=== PATIENT | female | born 1960 | race Caucasian/White ===

== ENCOUNTER 2016-12-08 17:54 | Emergency (ER) | payer OTHER ==
[~2016-12-08 17:54] MED LIST: ASPI81TA82 PO; ATOR10TA PO; FISHOIL PO; LEVO.1 PO; LISI-519 PO; METO25 PO; MULT-65 PO; NITR.4 SL
[2016-12-08 18:02] VITALS: BP 184/89; PULSE 98; RESP 15; TEMP 98.4; O2SAT 98
[2016-12-08 18:20] VITALS: RESP 20; O2SAT 100
--- NOTE | 2016-12-08 18:20 | PD ---
HPI Chief Complaint: Cardiac Complaint Time Seen by Provider: 18:16 Travel History International Travel<30 days: No Contact w/Intl Traveler<30days: No Traveled to known affect area: No History of Present Illness HPI Patient comes in complaining of left-sided chest pain that she describes as a dull ache that began last night. Patient states she had been working in the yard yesterday and last night she went to scratch her left shoulder with her right hand when the pain began. Patient denies anything making this better. States that is worse with certain movement of her left upper extremity. Patient denies any associated shortness of breath, nausea, vomiting, diaphoresis , fevers, numbness tingling were called back pain, loss or change in bowel or bladder, or trauma. Patient states that she does take low-dose aspirin daily and she took that today already. Patient currently does not have a machine feeder raw stock. PFSH Past Medical History Autoimmune Disease: No Heart Rhythm Problems: No Cancer: No Cardiac Catheterization: Yes Cardiovascular Problems: Yes High Cholesterol: Yes Chest Pain: Yes Congestive Heart Failure: No COPD: Yes Diabetes: No Diminished Hearing: No Endocrine: No Genitourinary: No Hepatitis: Yes Hypertension: Yes Immune Disorder: No Implanted Vascular Access Dvce: Yes Psychiatric: No Reproductive: No Respiratory: Yes Myocardial Infarction: Yes Tubal Ligation: Yes Past Surgical History AICD: No Arteriovenous Shunt: No Body Medical Devices: S/P CABG 10-26-12 Cardiac Surgery: Yes (CABG X2 VESSEL OCTOBER 2012) Coronary Artery Bypass Graft: Yes Insulin Pump: No Joint Replacement: No Oral Surgery: Yes (JAW SURGERY) Pacemaker: No Thoracic Surgery: Yes Tonsillectomy: Yes Other Surgery: Yes Social History Alcohol Use: No Tobacco Use: Yes Substance Use: No Allergies-Medications (Allergen,Severity, Reaction): Coded Allergies: morphine (Unverified Adverse Reaction, Intermediate, Headache, 12/08/16) Reported Meds & Prescriptions Reported Meds & Active Scripts Active Synthroid (Levothyroxine Sodium) 100 Mcg Tab 100 Mcg PO DAILY Lisinopril 5 Mg Tab 5 Mg PO DAILY Reported Nitroglycerin SL (Nitroglycerin) 0.4 Mg Subl 0.4 Mg SL DIRECTED PRN ONE TABLET UNDER THE TONGUE NEEDED FOR CHEST PAIN, MAY REPEAT EVERY FIVE MINUTES FOR A TOTAL OF 3 DOSES OR CALL 911 IF NO RELIEF Aspirin 81 Mg Chew 81 Mg CHEW DAILY Atorvastatin (Atorvastatin Calcium) 10 Mg Tab 10 Mg PO HS Metoprolol Tartrate 25 Mg Tab 12.5 Mg PO DAILY Review of Systems Except as stated in HPI: all other systems reviewed are Neg Physical Exam Narrative GENERAL: Well-developed, overly nourished, in no acute distress, and non-ill appearing. SKIN: Focused skin assessment warm and dry. HEAD: Atraumatic. Normocephalic. EYES: Pupils equal and round. EOMI. No scleral icterus. No injection or drainage. ENT: No nasal bleeding or discharge. Mucous membranes pink and moist. NECK: Trachea midline. No JVD. Supple. No nuclear rigidity. CARDIOVASCULAR: Regular rate and rhythm. No murmur appreciated. RESPIRATORY: No accessory muscle use. No respiratory distress. Clear to auscultation. Breath sounds equal bilaterally. MUSCULOSKELETAL: No obvious deformities. No clubbing. No cyanosis. No edema. Full range of motion. NEUROLOGICAL: Awake and alert. No obvious cranial nerve deficits. Motor grossly within normal limits. Normal speech. PSYCHIATRIC: Appropriate mood and affect; insight and judgment normal. Data Data Last Documented VS Vital Signs Date Time Temp Pulse Resp B/P (MAP) Pulse Ox O2 Delivery O2 Flow Rate FiO2 12/08/16 20:54 12/08/16 20:45 84 16 97 Room Air 12/08/16 18:02 98.4 Orders Orders Electrocardiogram (12/08/16 ) Basic Metabolic Panel (Bmp) (12/08/16 18:16) Ckmb (Isoenzyme) Profile (12/08/16 18:16) Complete Blood Count With Diff (12/08/16 18:16) Magnesium (Mg) (12/08/16 18:16) Prothrombin Time / Inr (Pt) (12/08/16 18:16) Act Partial Throm Time (Ptt) (12/08/16 18:16) Troponin I (12/08/16 18:16) Chest, Single Ap (12/08/16 18:16) Ecg Monitoring (12/08/16 18:16) Bilateral Bp Monitoring (12/08/16 18:16) Iv Access Insert/Monitor (12/08/16 18:16) Oximetry (12/08/16 18:16) Oxygen Administration (12/08/16 18:16) Aspirin Chew (Aspirin Chew) (9/3/17 18:30) Sodium Chloride 0.9% Flush (Ns Flush) (12/08/16 18:30) Labs Laboratory Tests Test 12/08/16 18:30 White Blood Count 9.9 TH/MM3 Red Blood Count 3.83 MIL/MM3 Hemoglobin 14.0 GM/DL Hematocrit 40.1 % Mean Corpuscular Volume 104.7 FL Mean Corpuscular Hemoglobin 36.6 PG Mean Corpuscular Hemoglobin Concent 35.0 % Red Cell Distribution Width 11.9 % Platelet Count 274 TH/MM3 Mean Platelet Volume 8.8 FL Neutrophils (%) (Auto) 71.3 % Lymphocytes (%) (Auto) 21.9 % Monocytes (%) (Auto) 6.1 % Eosinophils (%) (Auto) 0.5 % Basophils (%) (Auto) 0.2 % Neutrophils # (Auto) 7.0 TH/MM3 Lymphocytes # (Auto) 2.2 TH/MM3 Monocytes # (Auto) 0.6 TH/MM3 Eosinophils # (Auto) 0.1 TH/MM3 Basophils # (Auto) 0.0 TH/MM3 CBC Comment DIFF FINAL Differential Comment Prothrombin Time 11.3 SEC Prothromb Time International Ratio 1.0 RATIO Activated Partial Thromboplast Time 26.8 SEC Blood Urea Nitrogen 8 MG/DL Creatinine 0.98 MG/DL Random Glucose 114 MG/DL Calcium Level 9.1 MG/DL Magnesium Level 2.0 MG/DL Sodium Level 134 MEQ/L Potassium Level 3.7 MEQ/L Chloride Level 102 MEQ/L Carbon Dioxide Level 23.2 MEQ/L Anion Gap 9 MEQ/L Estimat Glomerular Filtration Rate 58 ML/MIN Total Creatine Kinase 86 U/L Troponin I LESS THAN 0.02 NG/ML MDM Medical Decision Making Medical Screen Exam Complete: Yes Emergency Medical Condition: Yes Interpretation(s) EKG reviewed by Dr. Meléndez shows sinus tachycardia with ventricular rate 112. No STEMI. Chest x-ray read by the radiologist shows: No acute disease. Differential Diagnosis Acute coronary syndrome, electrolyte abnormality, pneumonia, pneumothorax, musculoskeletal pain, other Narrative Course Records review shows patient had a stress test on 06/30/14 that was negative. Myocardial perfusion scan was negative for ischemia. Ejection fraction of 66%. Was noted to be low risk. The patients chest pain by history and evaluation appears noncardiac, nor noncardiopulmonary in etiology. Evaluation revealed no evidence of cardiac involvement at this time. There is no clinical evidence to suggest thoracic aortic aneurysms or pathology, nor evidence to suggest pulmonary embolism, pericarditis, pneumothorax, nor pneumonia at this time. Clinical suspicion was discussed with patient and the patient was instructed to follow up with primary care doctor for possible Cardiology referral for potential outpatient evaluation. I discussed this management with the patient and the patient understands the importance or acute follow up with primary care provider. The patient was instructed to return at any time if chest pain recurs, persists, changes or worsens in anyway while awaiting follow up. The patient agreed with plan. Patient in no obvious distress upon re-evaluation. All pertinent laboratory/ Radiology result(s) discussed with patient/family. Discussed patient with Dr. Meléndez prior to discharge, who is in agreement with plan of care and disposition. Any questions/concerns in reference to patient diagnosis/ condition discussed and clarified prior to patient's discharge. Reinforced sheer importance of close follow up with patient's primary physician or primary care clinic. Instructed patient to return to ED immediately, if symptoms return/ worsen. Pt showed understanding of above instructions. Further instructions and recommendations were detailed in discharge paperwork. Pt ambulated without difficulty out of ED at discharge. Diagnosis Primary Impression: Non-cardiac chest pain Patient Instructions: General Instructions, Noncardiac Chest Pain (ED) Additional Instructions: Follow-up with your primary care physician this week for reevaluation. Take all medication as prescribed. Return to the emergency department if symptoms get worse. Disposition: 01 DISCHARGE HOME Condition: Stable Chalino Crow Dec 08, 2016 18:20
[2016-12-08] MEDS ORDERED: NITR1SUB3 SL (18:24)
[2016-12-08] MEDS ORDERED: ATOR10TA15 PO (18:24)
[2016-12-08] MEDS ORDERED: METO25TA3 PO (18:24)
[2016-12-08] MEDS ORDERED: ASPI81CH CHEW (18:24)
[2016-12-08] MEDS ORDERED: SODIUM CHLORIDE 0.9% FLUSH 10 ML FLUSH IVF PRN (18:30)
[2016-12-08] MEDS ORDERED: ASPIRIN 81 MG CHEW TAB PO ONE (18:30)
[2016-12-08 18:52] LABS: ANION GAP 9 MEQ/L (5-15); APTT (PATIENT) 26.8 SEC (24.3-30.1); BICARBONATE 23.2 MEQ/L (21.0-32.0); BLOOD UREA NITROGEN 8 MG/DL (7-18); CHLORIDE 102 MEQ/L (98-107); GLOMERULAR FILTRATION RATE 58 ML/MIN (>89); POTASSIUM 3.7 MEQ/L (3.5-5.1); PROTHROMBIN TIME - PATIENT 11.3 SEC (9.8-11.6); SODIUM (NA) 134 MEQ/L (136-145)
[2016-12-08 18:54] LABS: BASOPHIL % 0.2 % (0.0-2.0); EOSINOPHIL # 0.1 TH/MM3 (0-0.4); EOSINOPHIL % 0.5 % (0.0-4.0); HEMATOCRIT 40.1 % (35.0-46.0); HEMO FLAGS DIFF FINAL; LYMPH % 21.9 % (9.0-44.0); LYMPHOCYTE # 2.2 TH/MM3 (1.0-4.8); MEAN CELL VOLUME 104.7 FL (80.0-100.0); MEAN CORPUSCULAR HEMOGLOBIN 36.6 PG (27.0-34.0); MONO % 6.1 % (0.0-8.0); NEUT % 71.3 % (16.0-70.0); PLATELET COUNT 274 TH/MM3 (150-450); RED BLOOD COUNT 3.83 MIL/MM3 (4.00-5.30); RED CELL DISTRIBUTION WIDTH 11.9 % (11.6-17.2); WHITE BLOOD COUNT 9.9 TH/MM3 (4.0-11.0)
[2016-12-08 19:04] LABS: CREATINE KINASE 86 U/L (26-192)
--- NOTE | 2016-12-08 19:14 | RADRPT ---
EXAM DATE/TIME: 12/08/2016 18:44 [facility] COMPARISON: CHEST SINGLE AP, September 06, 2015, 20:18. INDICATIONS : Left sided chest pain MEDICAL HISTORY : Myocardial infarction. SURGICAL HISTORY : CABG. ENCOUNTER: Initial ACUITY: 1 day PAIN SCORE: 8/10 LOCATION: Left Chest FINDINGS: A single view of the chest demonstrates the lungs to be symmetrically aerated without evidence of mas s, infiltrate or effusion. The cardiomediastinal contours are unremarkable. Osseous structures are intact. The patient is status post median sternotomy. There are multiple overlying electrocardiogram leads. CONCLUSION: No acute disease. Abdon Barrera MD on December 08, 2016 at 19:12 Board Certified Radiologist. This report was verified electronically.
[2016-12-08 20:45] VITALS: BP 127/78; PULSE 84; RESP 16; O2SAT 97
--- NOTE | 2016-12-09 20:12 | EKG ---
Date Performed: 12/08/2016 Time Performed: 18:15:15 PTAGE: 56 years EKG: SINUS TACHYCARDIA MINIMAL ST DEPRESSION ABNORMAL RHYTHM ECG PREVIOUS TRACING : 09/06/2015 20.11 DOCTOR: Lenny Vaughn Interpretating Date/Time 12/09/2016 20:06:56
[2016-12-30] MEDS ORDERED: METO25TA3 PO (15:30)
[2017-01-01] MEDS ORDERED: ATOR10TA15 PO (15:29)
[2017-01-01] MEDS ORDERED: LEVO112T2 PO (15:29)
[2017-01-01] MEDS ORDERED: LISI-519 PO (15:29)
== END 2016-12-08 21:06 | disposition home or self-care (01) ==
LOC: NEPE 17:54
DX: R07.9 Chest pain, unspecified (principal); R00.0 Tachycardia, unspecified; M79.641 Pain in right hand; R94.31 Abnormal electrocardiogram [ECG] [EKG]; E78.00 Pure hypercholesterolemia, unspecified; J44.9 Chronic obstructive pulmonary disease, unspecified; I10 Essential (primary) hypertension; I25.2 Old myocardial infarction; Z79.82 Long term (current) use of aspirin
CPT/HCPCS: 71010; 80048; 82550; 83735; 84484; 85025; 85610; 85730; 93005

== ENCOUNTER 2017-06-08 18:35 | Emergency (ER) | payer OTHER ==
[~2017-06-08] VITALS: Ht 160 cm; Wt 70.0 kg
[~2017-06-08 18:35] MED LIST changes: +ASPI-516 CHEW; -ASPI81TA82 PO; -ATOR10TA PO; +ATOR40TA16 PO; -FISHOIL PO; -LEVO.1 PO; +LEVO112T2 PO; -METO25 PO; +METO25TA3 PO; -MULT-65 PO; -NITR.4 SL
[2017-06-08 18:39] VITALS: BP 184/92; PULSE 111; RESP 16; TEMP 97.8; O2SAT 97
--- NOTE | 2017-06-08 19:11 | PD ---
HPI Chief Complaint: Numbness/Tingling Time Seen by Provider: 19:01 Travel History International Travel<30 days: No Contact w/Intl Traveler<30days: No Traveled to known affect area: No History of Present Illness HPI The patient is a 57 year old female who presents to the [facility] emergency department with a history of having her skin pulled tightly over her entire face associated with intermittent tingling sensations in her lower lip and tip of her tongue. 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 She reports that this is also been worse over the last few days. She reports that the symptoms in her face began 3 days ago. She denies having any tingling in her arms or legs. She denies having any weakness in her arms or legs. She denies having any slurred speech difficulty with word finding ability, difficulty with swallowing, loss of taste in her tongue, or facial droop. The patient reports that in 2012 when she was diagnosed with Mnire's disease someone had told her that in the differential was multiple sclerosis given her vertigo symptoms, therefore she was concerned that this may be a sign of MS, versus some other new medical condition. The patient reports that she does have a history of hypertension. She denies having any recent changes in her medication regimen. On review of systems otherwise, the patient denies having any known recent fevers, nasal discharge, cough, congestion, neck pain, chest pain, shortness of breath, abdominal pain, vomiting, diarrhea, or urinary symptoms. PCP: Dr. Watson. [facility] Past Medical History Narrative Medical The patient's past medical history is significant for Menierre's disease with severe vertigo, CAD, hypertension, COPD, hyperlipidemia, myocardial infarction. . Autoimmune Disease: No Heart Rhythm Problems: No Cancer: No Cardiac Catheterization: Yes (x2) Cardiovascular Problems: Yes (CABG, [place] 2012) High Cholesterol: Yes Chest Pain: Yes Congestive Heart Failure: No COPD: Yes Diabetes: No Diminished Hearing: No Endocrine: No Genitourinary: No Hepatitis: Yes Hypertension: Yes Immune Disorder: No Implanted Vascular Access Dvce: Yes Psychiatric: No Reproductive: No Respiratory: Yes Myocardial Infarction: Yes : 1 Para: 1 Miscarriage: 0 : 0 Tubal Ligation: Yes Past Surgical History Narrative Surgical The patient's past surgical history is significant for CABG x2, tonsillectomy, left jaw sx, BTL. AICD: No Arteriovenous Shunt: No Body Medical Devices: S/P CABG 10-26-12 Cardiac Surgery: Yes (CABG X2 VESSEL OCTOBER 2012) Coronary Artery Bypass Graft: Yes (x2) Insulin Pump: No Joint Replacement: No Oral Surgery: Yes (JAW SURGERY) Pacemaker: No Thoracic Surgery: Yes Tonsillectomy: Yes Other Surgery: Yes Social History Alcohol Use: No Tobacco Use: No Substance Use: No Allergies-Medications (Allergen,Severity, Reaction): Coded Allergies: morphine (Unverified Adverse Reaction, Intermediate, Headache, 04/04/17) Reported Meds & Prescriptions Reported Meds & Active Scripts Active Atorvastatin (Atorvastatin Calcium) 40 Mg Tab 40 Mg PO HS Levothyroxine (Levothyroxine Sodium) 112 Mcg Tab 112 Mcg PO DAILY Lisinopril 5 Mg Tab 5 Mg PO DAILY Metoprolol Tartrate 25 Mg Tab 12.5 Mg PO DAILY Reported Aspirin 81 Mg Chew 81 Mg CHEW DAILY Review of Systems Except as stated in HPI: all other systems reviewed are Neg General / Constitutional: No: Fever Eyes: No: Visual changes HENT: Positive: Headaches, No: Rhinitis, Rhinorrhea, Congestion, Neck Pain Cardiovascular: No: Chest Pain or Discomfort Respiratory: No: Shortness of Breath Gastrointestinal: No: Abdominal Pain Genitourinary: No: Dysuria Musculoskeletal: No: Pain Skin: No Rash Neurologic: Positive: Headache, Paresthesia, Sensory Disturbance, No: Weakness , Focal Abnormalities, Change in Mentation, Slurred Speech Psychiatric: No: Depression Endocrine: No: Polydipsia Hematologic/Lymphatic: No: Easy Bruising Physical Exam Narrative General: The patient is a well-developed well-nourished female in no acute distress. Head and Neck exam: Head is normocephalic atraumatic. Eyes: EOMI, pupils are equal round and reactive to light. Nose: Midline septum with pink mucous membranes Mouth: Dentition unremarkable. Moist mucus membranes. Posterior oropharynx is not erythematous. No tonsillar hypertrophy. Uvula midline. Airway patent. Neck: No palpable lymphadenopathy. No nuchal rigidity. No thyromegaly. Cardiovascular: Regular rate and rhythm without murmurs, gallops, or rubs. No pulse deficit to the extremities on simultaneous auscultation and palpation of her radial artery. Lungs: Clear to auscultation bilaterally. No wheezes, rhonchi, or rales. Abdomen: Soft, without tenderness to palpation in all 4 quadrants of the abdomen. No guarding, rebound, or rigidity. Normal bowel sounds are audible. No tenderness on palpation of McBurney's point. Negative Erwin sign Extremities: No clubbing, cyanosis, or edema. 2+ pulses in all 4 extremities. No calf tenderness on palpation Back: No costovertebral angle tenderness to palpation. Neurologic Exam: Cranial nerves 2-12 were intact on exam. Strength is 5/5 in all 4 extremities. No sensory deficits noted. Skin Exam: No rash noted. Intact skin that is warm and dry. Data Data Last Documented VS Vital Signs Date Time Temp Pulse Resp B/P (MAP) Pulse Ox O2 Delivery O2 Flow Rate FiO2 06/08/17 20:06 110 16 162/85 (110) 100 Room Air 06/08/17 18:39 97.8 Orders Orders Electrocardiogram (06/08/17 19:) Complete Blood Count With Diff (06/08/17:) Comprehensive Metabolic Panel (06/08/17:) Creatine Kinase (Cpk) (06/08/17 19:02) Ckmb (Isoenzyme) Profile (06/08/17 19:02) Troponin I (06/08/17:) Prothrombin Time / Inr (Pt) (06/08/17:) Act Partial Throm Time (Ptt) (06/08/17 19:) Lipase (06/08/17 19:02) Magnesium (Mg) (06/08/17:) Thyroid Stimulating Hormone (06/08/17 19:02) Chest, Single Ap (06/08/17 19:) Ct Brain W/O Iv Contrast(Rout) (06/08/17 19:02) Iv Access Insert/Monitor (06/08/17 19:) Ecg Monitoring (06/08/17:) Oximetry (06/08/17:) Labs Laboratory Tests Test 06/08/17 19:15 White Blood Count 8.5 TH/MM3 Red Blood Count 3.91 MIL/MM3 Hemoglobin 14.4 GM/DL Hematocrit 40.3 % Mean Corpuscular Volume 103.0 FL Mean Corpuscular Hemoglobin 36.7 PG Mean Corpuscular Hemoglobin Concent 35.7 % Red Cell Distribution Width 11.8 % Platelet Count 260 TH/MM3 Mean Platelet Volume 8.5 FL Neutrophils (%) (Auto) 66.7 % Lymphocytes (%) (Auto) 24.9 % Monocytes (%) (Auto) 7.5 % Eosinophils (%) (Auto) 0.6 % Basophils (%) (Auto) 0.3 % Neutrophils # (Auto) 5.7 TH/MM3 Lymphocytes # (Auto) 2.1 TH/MM3 Monocytes # (Auto) 0.6 TH/MM3 Eosinophils # (Auto) 0.0 TH/MM3 Basophils # (Auto) 0.0 TH/MM3 CBC Comment DIFF FINAL Differential Comment Prothrombin Time 11.1 SEC Prothromb Time International Ratio 1.1 RATIO Activated Partial Thromboplast Time 24.9 SEC Blood Urea Nitrogen 11 MG/DL Creatinine 0.89 MG/DL Random Glucose 109 MG/DL Total Protein 7.2 GM/DL Albumin 4.1 GM/DL Calcium Level 9.0 MG/DL Magnesium Level 1.9 MG/DL Alkaline Phosphatase 57 U/L Aspartate Amino Transf (AST/SGOT) 18 U/L Alanine Aminotransferase (ALT/SGPT) 20 U/L Total Bilirubin 0.3 MG/DL Sodium Level 136 MEQ/L Potassium Level 3.9 MEQ/L Chloride Level 104 MEQ/L Carbon Dioxide Level 25.7 MEQ/L Anion Gap 6 MEQ/L Estimat Glomerular Filtration Rate 65 ML/MIN Total Creatine Kinase 93 U/L Troponin I LESS THAN 0.02 NG/ML Lipase 136 U/L Thyroid Stimulating Hormone 3rd Gen 0.051 uIU/ML MDM Medical Decision Making Medical Screen Exam Complete: Yes Emergency Medical Condition: Yes Medical Record Reviewed: Yes Interpretation(s) Last Impressions Head CT 06/08/171901 Signed Impressions: Service Date/Time: Thursday, June 08, 2017 19:27 - CONCLUSION: 1. No acute intracranial abnormalities. Ha Kay MD Chest X-Ray 06/08/171901 Signed Impressions: Service Date/Time: Thursday, June 08, 2017 19:12 - CONCLUSION: 1. No active disease. Previous median sternotomy. Ha Kay MD Differential Diagnosis Rees's palsy, versus scleroderma, versus trigeminal neuralgia, versus anxiety disorder, versus multiple sclerosis, versus electrolyte derangements Narrative Course During the course of the patient's emergency department visit, the patient's history, examination, and differential diagnosis were reviewed with the patient. The patient was placed on a cardiac/vascular sonographer with oximetry and frequent blood pressure monitoring. The patient had IV access obtained and blood work sent for analysis. The patient had an EKG done on arrival that shows a sinus tachycardia rate of 102, QRS duration is 87 ms, QTC is [address] segment elevation. The patient's laboratory studies were reviewed and remarkable for a white count of 8.5, hemoglobin 14.4, platelets 260 with a normal differential. PT 11.1, INR 1.1, PTT 24.9. CMP is remarkable for a glucose of 109, CPK 93, troponin I less than 0.02, lipase 136, TSH 0.051. This is compared to the last TSH done at this facility which was in 2014. The patient is on a thyroid supplement. The patient was instructed that her thyroid supplement will need to be decreased as this could be causing some of the symptoms that she is experiencing. Radiology studies were reviewed and remarkable for chest x-ray that shows no acute abnormality, CT scan of the brain shows no acute abnormality. The patient is given a copy of her laboratory results including the low TSH. She is instructed to call her primary care physician, Dr. Watson in the morning to discuss this further with him. The patient is resting comfortably and feels better, is alert and in no distress. The patient's results and examination findings were discussed with the patient. The repeat examination is unremarkable and benign. The history, exam, diagnostic testing, and current condition do not suggest any significant pathology to warrant further testing, continued ED treatment, admission, or surgical evaluation at this point. The vital signs have been stable. The patient does not have uncontrollable pain, intractable vomiting, or other significant symptoms. The patient's condition is stable and appropriate for discharge. The patient will pursue further outpatient evaluation with a primary care physician or other designated or consulting physician as indicated in the discharge instructions. The patient expressed understanding and was agreeable with this plan. Diagnosis Primary Impression: Numbness and tingling Additional Impression: Hyperthyroidism Referrals: Primary Care Physician Patient Instructions: General Instructions, Hyperthyroidism (ED), Paresthesia ( ED) Med/Other Pt SpecificInfo: Existing Med Changed (Patient is instructed that her levothyroxine dose will need to be decreased by her primary care) Disposition: 01 DISCHARGE HOME Condition: Stable Nanci Shetty MD Jun 08, 2017:11
--- NOTE | 2017-06-08 19:39 | RADRPT ---
EXAM DATE/TIME: 06/08/2017 19:27 [facility] COMPARISON: CT BRAIN W/O CONTRAST, December 26, 2012, 1:11. INDICATIONS : Facial numbness X 3 days. RADIATION DOSE: 36.76 CTDIvol (mGy) MEDICAL HISTORY : Cardiovascular disease. Hypertension. Meniers disease SURGICAL HISTORY : Tubal ligation. CABG ENCOUNTER: Initial ACUITY: 3 days PAIN SCALE: 0/10 LOCATION: cranial TECHNIQUE: Multiple contiguous axial images were obtained of the head. Using automated exposure control and adj ustment of the mA and/or kV according to patient size, radiation dose was kept as low as reasonably a chievable to obtain optimal diagnostic quality images. DICOM format image data is available electro nically for review and comparison. FINDINGS: CEREBRUM: The ventricles are normal for age. No evidence of midline shift, mass lesion, hemorrhage or acute in farction. No extra-axial fluid collections are seen. POSTERIOR FOSSA: The cerebellum and brainstem are intact. The 4th ventricle is midline. The cerebellopontine angle i s unremarkable. EXTRACRANIAL: The visualized portion of the orbits is intact. SKULL: The calvaria is intact. No evidence of skull fracture. CONCLUSION: 1. No acute intracranial abnormalities. Ha Kay MD on June 08, 2017 at 19:36 Board Certified Radiologist. This report was verified electronically.
--- NOTE | 2017-06-08 19:41 | RADRPT ---
EXAM DATE/TIME: 06/08/2017 19:12 [facility] COMPARISON: CHEST SINGLE AP, December 08, 2016, 18:44. INDICATIONS : Light headed and dizziness. MEDICAL HISTORY : Myocardial infarction. SURGICAL HISTORY : CABG. ENCOUNTER: Initial ACUITY: 1 day PAIN SCORE: 0/10 LOCATION: Bilateral chest FINDINGS: A single view of the chest demonstrates the lungs to be symmetrically aerated without evidence of mas s, infiltrate or effusion. The cardiomediastinal contours are unremarkable. Osseous structures are intact. Previous sternotomy. CONCLUSION: 1. No active disease. Previous median sternotomy. Ha Kay MD on June 08, 2017 at 19:37 Board Certified Radiologist. This report was verified electronically.
[2017-06-08 19:54] VITALS: RESP 16; O2SAT 99
[2017-06-08 20:04] LABS: AUTOMATED NEUTROPHIL # 5.7 TH/MM3 (1.8-7.7); BASOPHIL % 0.3 % (0.0-2.0); EOSINOPHIL % 0.6 % (0.0-4.0); HEMATOCRIT 40.3 % (35.0-46.0); HEMOGLOBIN 14.4 GM/DL (11.6-15.3); LYMPH % 24.9 % (9.0-44.0); LYMPHOCYTE # 2.1 TH/MM3 (1.0-4.8); MEAN CORPUSCULAR HEMOGLOBIN 36.7 PG (27.0-34.0); MEAN CORPUSCULAR HGB CONC 35.7 % (32.0-36.0); MEAN PLATELET VOLUME 8.5 FL (7.0-11.0); MONO % 7.5 % (0.0-8.0); MONOCYTE # 0.6 TH/MM3 (0-0.9); NEUT % 66.7 % (16.0-70.0); PLATELET COUNT 260 TH/MM3 (150-450); RED BLOOD COUNT 3.91 MIL/MM3 (4.00-5.30); RED CELL DISTRIBUTION WIDTH 11.8 % (11.6-17.2); WHITE BLOOD COUNT 8.5 TH/MM3 (4.0-11.0)
[2017-06-08 20:06] VITALS: BP 162/85; PULSE 110; RESP 16; O2SAT 100
[2017-06-08 20:14] LABS: INTERNATIONAL NORMALIZED RATIO 1.1 RATIO; PROTHROMBIN TIME - PATIENT 11.1 SEC (9.8-11.6)
[2017-06-08 20:26] LABS: ALBUMIN 4.1 GM/DL (3.4-5.0); AST (GOT) 18 U/L (15-37); BICARBONATE 25.7 MEQ/L (21.0-32.0); BLOOD UREA NITROGEN 11 MG/DL (7-18); CHLORIDE 104 MEQ/L (98-107); CREATININE 0.89 MG/DL (0.50-1.00); GLOMERULAR FILTRATION RATE 65 ML/MIN (>89); GLUCOSE,RANDOM 109 MG/DL (74-106); MAGNESIUM 1.9 MG/DL (1.5-2.5); SODIUM (NA) 136 MEQ/L (136-145)
[2017-06-08 20:38] LABS: ALKALINE PHOSPHATASE 57 U/L (45-117); ALT (GPT) 20 U/L (10-53); TOTAL BILIRUBIN ADULT 0.3 MG/DL (0.2-1.0); TOTAL PROTEIN 7.2 GM/DL (6.4-8.2); TROPONIN I LESS THAN 0.02 NG/ML (0.02-0.05)
[2017-06-08 21:47] VITALS: BP 133/86
--- NOTE | 2017-06-09 13:25 | EKG ---
Date Performed: 06/08/2017 Time Performed: 19:47:58 PTAGE: 57 years EKG: SINUS TACHYCARDIA MODERATE ST DEPRESSION ABNORMAL ECG PREVIOUS TRACING : 12/08/2016 18.15 Since the prior tracing, there has been no significant douglass DOCTOR: Thomas Ellington Interpretating Date/Time 06/09/2017 13:23:48
== END 2017-06-08 22:00 | disposition home or self-care (01) ==
LOC: NEPC 18:35
DX: R20.2 Paresthesia of skin (principal); E05.90 Thyrotoxicosis, unspecified without thyrotoxic crisis or storm; E78.00 Pure hypercholesterolemia, unspecified; I10 Essential (primary) hypertension; R00.0 Tachycardia, unspecified; Z79.899 Other long term (current) drug therapy
CPT/HCPCS: 70450; 71045; 80053; 82550; 83690; 83735; 84443; 84484; 85025; 85610; 85730; 93005